=== PATIENT | female | born 1980 | race Caucasian/White ===

== ENCOUNTER → 2020-10-06 10:46 | Outpatient (CLI) | payer BC ==
[~2020-10-06 10:46] MED LIST: EFFEXOR XR150 MG PO; ESTRACE 0.5 MG0.5 MG PO; HYDROCODON-ACE1 EA10 PO; NORVASC5 MG PO; PERCOCET 5-3251 TAB PO; PHENERGAN25 M1 PO
[2020-10-08 10:06] VITALS: BMI 22.2
== END | disposition home or self-care (01) ==
LOC: D.NM 10:46
PROVIDERS: ATTEND Family Medicine
DX: R10.9 Unspecified abdominal pain (principal)

== ENCOUNTER 2020-10-06 13:51 | Emergency (ER) | payer BC ==
[~2020-10-06] VITALS: Ht 149.9 cm; Wt 47.7 kg
[2020-10-06 14:16] VITALS: Ht 149.9 cm; Wt 47.7 kg
[2020-10-06] MEDS ORDERED: EFFEXOR XR150 MG PO (14:17)
[2020-10-06] MEDS ORDERED: ESTRACE 0.5 MG0.5 MG PO (14:17)
[2020-10-06] MEDS ORDERED: NORVASC5 MG PO (14:18)
[2020-10-06 15:50] LABS: BASOPHILS 0.7 % (0-2); EOSINOPHILS 0.8 % (0-7); HEMATOCRIT 40.5 % (36.0-48.0); IMMATURE GRANULOCYTES 0.2 % (0-5); LYMPHOCYTE ABS# 1.41 10x3/uL (1.18-3.74); LYMPHOCYTES 23.4 % (15-50); MCH 30.2 pg (26.0-34.0); MCHC 34.6 g/dL (31.0-37.0); MCV 87.5 fL (80.0-100.0); MEAN PLATELET VOLUME 11.8 fL (7.4-10.4); MONOCYTES 9.6 % (2-11); NEUTROPHIL ABS# 3.94 10x3/uL (1.56-6.13); NEUTROPHILS 65.3 % (40-80); PLATELET COUNT 226 10x3/uL (130-400); RBC 4.63 10x6/uL (4.00-5.40); RDW 12.7 % (11.5-14.5)
[2020-10-06 15:55] LABS: CALC OSMOLALITY 277 mosm/kg (275-300); CALCIUM 8.9 mg/dL (8.5-10.1); CHLORIDE - SERUM 103 mmol/L (98-107); CREATININE - SERUM 0.8 mg/dL (0.6-1.3); GLUCOSE 88 mg/dL (74-106); POTASSIUM - SERUM 3.7 mmol/L (3.5-5.1); SODIUM 138 mmol/L (136-145); UREA NITROGEN 21 mg/dL (7-18); eGFR NON AFRICAN AMERICAN 83 mL/min (90-120)
[2020-10-06 16:02] LABS: ALKALINE PHOSPHATASE 159 U/L (30-120); ALT (SGPT) 28 U/L (10-68); BILIRUBIN - TOTAL 0.21 mg/dL (0.2-1.3); LIPASE 454 U/L (73-393); PROTEIN - SERUM 7.6 g/dL (6.4-8.2)
[2020-10-06] MEDS ORDERED: PHENERGAN25 M1 PO (16:14)
[2020-10-06] MEDS ORDERED: PERCOCET 5-3251 TAB PO (16:14)
[2020-10-06 16:57] VITALS: BP 104/63
== END 2020-10-06 16:58 | disposition home or self-care (01) ==
LOC: D.ER 13:51
PROVIDERS: Emergency Medicine
DX: K82.8 Other specified diseases of gallbladder (principal); R10.9 Unspecified abdominal pain

== ENCOUNTER 2020-10-08 09:15 | Day surgery (SDC) | payer BC ==
[2020-10-07 16:35] LABS: BASOPHILS 0.9 % (0-2); EOSINOPHILS 2.2 % (0-7); HEMATOCRIT 39.2 % (36.0-48.0); HEMOGLOBIN 13.3 g/dL (12-16); LYMPHOCYTE ABS# 1.57 10x3/uL (1.18-3.74); MCHC 33.9 g/dL (31.0-37.0); MCV 88.5 fL (80.0-100.0); MEAN PLATELET VOLUME 10.9 fL (7.4-10.4); MONOCYTES 10.5 % (2-11); NEUTROPHIL ABS# 2.31 10x3/uL (1.56-6.13); NEUTROPHILS 51.4 % (40-80); PLATELET COUNT 206 10x3/uL (130-400); RBC 4.43 10x6/uL (4.00-5.40); RDW 12.8 % (11.5-14.5); WBC 4.5 10x3/uL (4.8-10.8)
[2020-10-07 16:43] LABS: CALC OSMOLALITY 276 mosm/kg (275-300); CALCIUM 9.1 mg/dL (8.5-10.1); CARBON DIOXIDE 27.3 mmol/L (21.0-32.0); CHLORIDE - SERUM 104 mmol/L (98-107); CREATININE - SERUM 0.8 mg/dL (0.6-1.3); GLUCOSE 89 mg/dL (74-106); POTASSIUM - SERUM 3.6 mmol/L (3.5-5.1); SODIUM 140 mmol/L (136-145); UREA NITROGEN 10 mg/dL (7-18); eGFR NON AFRICAN AMERICAN 83 mL/min (90-120)
[~2020-10-08] VITALS: Ht 149.9 cm; Wt 49.9 kg
--- NOTE | ~2020-10-08 | OP ---
PATIENT NAME: APRIL MARIA MEDICAL RECORD: [id number] :76 LOCATION:D.OPS ADMISSION DATE: SURGEON: DREW HINDS MD DATE OF OPERATION: 10/08/2020 PREOPERATIVE DIAGNOSES: 1. Biliary dyskinesia. 2. Hypertension. 3. History of endometriosis. POSTOPERATIVE DIAGNOSES: 1. Biliary dyskinesia. 2. Hypertension. 3. History of endometriosis. PROCEDURE: Laparoscopic cholecystectomy. SURGEON: Drew Hinds MD DESCRIPTION OF PROCEDURE: The patient's abdomen was prepped and draped in sterile fashion. A cutdown was made on the superior aspect of the umbilicus, 0 Vicryls were placed in the fascia bilaterally and the fascia was incised with a 15-blade. I then bluntly entered the peritoneal cavity and placed a 12-mm Cecilio port. Under direct visualization, a 5-mm trocar was placed in the epigastrium and two more 5-mm trocars were placed in right subcostal region. The gallbladder was grasped and elevated. There were no signs of any inflammatory changes. The cystic artery and cystic duct were dissected free and these were clipped proximally and distally and ligated in standard fashion. The gallbladder was taken off the liver bed using electrocautery and placed into the right upper quadrant. Any bleeding from the liver bed was then treated with electrocautery. At this point, the ports and insufflation were then removed and the gallbladder was taken out through the umbilicus. The umbilical fascia was closed with interrupted 0 Vicryls times 3. The wounds were irrigated out with normal saline and infused with 10 mL of 0.25% Marcaine with epinephrine. The skin incisions were closed with subcutaneous 5-0 Monocryl and dressed appropriately. COMPLICATIONS: None. CONDITION: Stable. ANESTHESIA: General endotracheal and local. BLOOD LOSS: Minimal. 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
[~2020-10-08 09:15] MED LIST changes: -HYDROCODON-ACE1 EA10 PO
[2020-10-08 10:06] VITALS: BP 128/67; Ht 149.9 cm; Wt 49.9 kg
[2020-10-08] MEDS ORDERED: HYDROCODON-ACE1 EA10 PO (11:43)
--- NOTE | 2020-10-08 14:44 | NUR ---
1215 PT SLEEPY AND VS STABLE. TOLERATED A SIPP OF WATER. ABDOMEN SOFT AND BANDAIDS X3. FAMILY AT BEDSIDE. 1300 ASSITED ON BEDPAN VOIDED X1. 1330 ASSISTED UP TO BATHROOM TO VOID. IV REMOVED AND INSTRUCTIONS GIVEN,
== END 2020-10-08 14:10 | disposition home or self-care (01) ==
LOC: D.OPS 09:15
PROVIDERS: ATTEND Surgery
DX: K82.8 Other specified diseases of gallbladder (principal); I10 Essential (primary) hypertension; Z87.42 Personal history of other diseases of the female genital tract